=== PATIENT | male | born 1945 | race Caucasian/White ===

== ENCOUNTER 2017-03-09 20:32 | Emergency (ER) | payer MEDICARE, OTHER ==
[~2017-03-09] VITALS: Ht 180.3 cm; Wt 88.0 kg
[~2017-03-09 20:32] MED LIST: ASPI81TA82 PO; ATEN-100 PO; ATOR40TA PO; CEPH500C3 PO; MECL-62 PO; NICO21T T-DERMAL
[2017-03-09 20:35] VITALS: BP 129/89; PULSE 82; RESP 16; TEMP 97.9; O2SAT 98
[2017-03-09] MEDS ORDERED: ATEN50TA PO (21:12)
[2017-03-09] MEDS ORDERED: ATOR40TA16 PO (21:12)
[2017-03-09] MEDS ORDERED: ASPI81CH37 CHEW (21:12)
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
--- NOTE | 2017-03-09 21:40 | RADRPT ---
EXAM DATE/TIME: 03/09/2017 21:24 [facility] COMPARISON: No previous studies available for comparison. INDICATIONS : Short of breath MEDICAL HISTORY : None. SURGICAL HISTORY : Pacemaker. ENCOUNTER: Initial ACUITY: 3 days PAIN SCORE: 0/10 LOCATION: Bilateral chest FINDINGS: A single view of the chest demonstrates the lungs to be symmetrically aerated without evidence of mas s, infiltrate or effusion. The cardiomediastinal contours are unremarkable. Osseous structures are intact. Cardiac pacer with 2 leads again noted. CONCLUSION: No evidence of acute cardiopulmonary disease. Darío Reyes MD on March 09, 2017 at 21:38 Board Certified Radiologist. This report was verified electronically.
[2017-03-09 21:50] LABS: AUTOMATED NEUTROPHIL # 8.2 TH/MM3 (1.8-7.7); BASOPHIL # 0.1 TH/MM3 (0-0.2); BASOPHIL % 0.9 % (0.0-2.0); EOSINOPHIL # 0.3 TH/MM3 (0-0.4); EOSINOPHIL % 2.2 % (0.0-4.0); HEMATOCRIT 44.3 % (39.0-51.0); HEMO FLAGS DIFF FINAL; LYMPH % 25.6 % (9.0-44.0); LYMPHOCYTE # 3.3 TH/MM3 (1.0-4.8); MEAN CELL VOLUME 91.5 FL (80.0-100.0); MEAN CORPUSCULAR HEMOGLOBIN 31.2 PG (27.0-34.0); MEAN CORPUSCULAR HGB CONC 34.1 % (32.0-36.0); MONO % 8.1 % (0.0-8.0); NEUT % 63.2 % (16.0-70.0); PLATELET COUNT 290 TH/MM3 (150-450); RED BLOOD COUNT 4.84 MIL/MM3 (4.50-5.90); RED CELL DISTRIBUTION WIDTH 13.9 % (11.6-17.2); WHITE BLOOD COUNT 12.9 TH/MM3 (4.0-11.0)
[2017-03-09 22:53] LABS: ANION GAP 7 MEQ/L (5-15); AST (GOT) 20 U/L (15-37); BICARBONATE 27.2 MEQ/L (21.0-32.0); BLOOD UREA NITROGEN 25 MG/DL (7-18); CHLORIDE 110 MEQ/L (98-107); GLOMERULAR FILTRATION RATE 56 ML/MIN (>89); MAGNESIUM 2.2 MG/DL (1.5-2.5); POTASSIUM 4.7 MEQ/L (3.5-5.1); SODIUM (NA) 144 MEQ/L (136-145)
[2017-03-09 23:03] LABS: ALKALINE PHOSPHATASE 124 U/L (45-117); ALT (GPT) 31 U/L (12-78); TOTAL BILIRUBIN ADULT 0.3 MG/DL (0.2-1.0)
[2017-03-09 23:09] LABS: BLOOD, URINE NEG (NEG); CALCIUM OXALATE CRYSTALS,URINE RARE /hpf; GLUCOSE,URINE NEG (NEG); HYALINE CAST, URINE 3 /lpf (RARE); KETONE, URINE NEG (NEG); MUCUS URINE MOD /lpf (OCC); NITRITE,URINE NEG (NEG); PH, URINE 5.5 (5.0-8.5); SQUAMOUS EPITHELIAL CELL URINE <1 /hpf (0-5); URINE COLOR YELLOW (YELLW/STRAW)
[2017-03-09 23:12] LABS: COMMENT (UR) CULT NOT INDICATED; CULTURE IF INDICATED CULT NOT INDICATED
[2017-03-09] MEDS ORDERED: SODIUM CHLOR 0.9% 1000 ML INJ 1,000 ML IV ONE (23:15)
--- NOTE | 2017-03-10 16:39 | EKG ---
Date Performed: 03/09/2017 Time Performed: 22:25:22 PTAGE: 71 years EKG: Probable underlying atrial fibrillation ELECTRONIC VENTRICULAR PACEMAKER -- CONTOUR ANALYSI S BASED ON INTRINSIC RHYTHM When compared to previous tracing, atrial fibrillation and Ventricular pa cing is new. ABNORMAL RHYTHM ECG PREVIOUS TRACING : 04/27/2015 09.35 DOCTOR: Adria Roa Interpretating Date/Time 03/10/2017 16:38:27
== END 2017-03-10 00:07 | disposition home or self-care (01) ==
LOC: NEPE 20:32
DX: E86.0 Dehydration (principal); I10 Essential (primary) hypertension; F17.200 Nicotine dependence, unspecified, uncomplicated
CPT/HCPCS: 71010; 80053; 81001; 83735; 84443; 85025; 93005; 99285; J7030